=== PATIENT | female | born 1935 | race Asian ===

== ENCOUNTER 2017-01-17 08:52 | Emergency (ER) | payer OTHER ==
--- NOTE | 2017-01-17 09:20 | PDOC ---
History of Present Illness - History of Present Illness Initial Comments: 01/17/17 09:17 81 yo F unknown pmhx here wtih c/o fall this am. pt is poor historian and cant give details of her fall. pt was brought by ambulance, currently c/o right wrist pain. no neck or back pain. no n/v. no f/c. no family with patient. 01/17/17 09:51 pashto intrepeter [id number]. pt states fell this am while walking, has right wrist pain. no loc did not hit head. states her son was called and is coming to ED. no pmhx. no meds no allergies. <Paula Mcdaniel - Last Filed: 01/17/17 12:34> <Noemi Ureña - Last Filed: 01/17/17 12:43> - General Chief Complaint: Injury Stated Complaint: FALL Time Seen by Provider: 01/17/17 09:11 Past History <Paula Mcdaniel - Last Filed: 01/17/17 12:34> <Noemi Ureña - Last Filed: 01/17/17 12:43> - Past Medical History Allergies/Adverse Reactions: Allergies Allergy/AdvReac Type Severity Reaction Status Date / Time No Known Allergies Allergy Verified 01/17/17 09:25 Home Medications: Ambulatory Orders NK [No Known Home Medication] 01/17/17 Review of Systems - Review of Systems Constitutional: No: Chills, Diaphoresis HEENTM: No: Blurred Vision Respiratory: No: Cough, Orthopnea Cardiac (ROS): No: Chest Pain, Edema Musculoskeletal: Yes: Joint Pain Integumentary: No: Bruising, Change in Color All Other Systems: Reviewed and Negative <Paula Mcdaniel - Last Filed: 01/17/17 12:34> *Physical Exam - Physical Exam General Appearance: Yes: Nourished, Appropriately Dressed HEENT: positive: Normal Voice Neck: positive: Trachea midline Respiratory/Chest: positive: Lungs Clear, Normal Breath Sounds Cardiovascular: positive: Regular Rhythm, Regular Rate, S1, S2, Murmur. negative: Edema, JVD Gastrointestinal/Abdominal: positive: Normal Bowel Sounds. negative: Tender, Flat Musculoskeletal: positive: Other (right wrist deformity ttp,. decreased rom. elbow, shoulder FROM. ) Extremity: positive: Normal Capillary Refill, Normal Inspection Integumentary: positive: Normal Color, Dry, Warm Neurologic: positive: Other (alert and oriented x 2) <Paula Mcdaniel - Last Filed: 01/17/17 12:34> - Vital Signs Last Vital Signs Temp Pulse Resp BP Pulse Ox 97.2 F L 62 20 114/65 100 01/17/17 09:14 01/17/17 09:14 01/17/17 09:14 01/17/17 09:14 01/17/17 09:14 <Noemi Ureña - Last Filed: 01/17/17 12:43> Heart Score/ECG Review #1 General ECG Interpretation: Sinus Rhythm, Normal Rate (66), Normal Intervals, No acute ischemic changes Compared to previous ECG there are: Other (Qtc 492) <Paula Mcdaniel - Last Filed: 01/17/17 12:34> ED Treatment Course - RADIOLOGY Radiograph Interpretation: 01/17/17 10:55 XRay of Right Wrist As reviewed by Dr. Jose Wang IMPRESSION: Fractures of distal radius and ulna. Orthopedic follow-up needed. 01/17/17 12:42 XRay of Right Wrist As reviewed by Dr. Jose Wang IMPRESSION: Improvement in angulation following reduction of distal radius fracture. Casting for stabilization. - Medications Given in the ED: ED Medications Discontinued Medications Generic Name Dose Route Start Last Admin Trade Name Freq PRN Reason Stop Dose Admin Acetaminophen 650 mg 01/17/17 09:52 01/17/17 10:00 Tylenol - PO 01/17/17 09:53 650 mg ONCE ONE Administration <Noemi Ureña - Last Filed: 01/17/17 12:43> Medical Decision Making - Medical Decision Making 01/17/17 10:53 Ortho was called at 10:53. Dr Martinez is home economist, awaiting call back. 01/17/17 10:54 Dr. Martinez returned call at 10:[address] Mcdaniel about the patient's care. <Noemi Ureña - Last Filed: 01/17/17 12:43> *DC/Admit/Observation/Transfer - Discharge Dispostion Admit: No <Paula Mcdaniel - Last Filed: 01/17/17 12:34> <Noemi Ureña - Last Filed: 01/17/17 12:43> Diagnosis at time of Disposition: Distal radial fracture - Referrals Referrals: Chris Valdovinos [Primary Care Provider] - 1 week Jerzy Martinez MD [Staff Physician] - 7 days - Patient Instructions Additional Instructions: follow up with DR Martinez orthopedist. call to schedule for one week. wear splint. elevate to reduce swelling and pain. take ibuprofen 400 mg every 8 hrs as needed for pain. you can also take tylenol 500 mg every 6 hours as needed for pain. return for numbness tingling or any concerns.
[2017-01-17 09:31] VITALS: BP 114/65; PULSE 62; TEMP 97.2; BMI 22.6
[2017-01-17] MEDS ORDERED: ACETAMINOPHEN 325 MG TABLET (FP) PO ONE (09:52)
[2017-01-17] MEDS ORDERED: ACETAMINOPHEN 325 MG TABLET (FP) ONE (09:57)
[2017-01-17] MEDS ORDERED: LIDOCAINE HCL/PF 1% SDV 5ML VIAL ONE ×2 (11:49)
[2017-01-17] MEDS ORDERED: LIDOCAINE HCL 1%, 10 MG/ML (50 mL VIAL) SQ ONE (11:49)
--- NOTE | 2017-01-17 15:18 | CONS ---
DATE OF CONSULTATION: 01/17/2017 CHIEF COMPLAINT: Right wrist pain. HISTORY OF PRESENT ILLNESS: This is a pleasant 81-year-old female who slipped, landing on her outstretched right wrist. She complained of wrist pain afterwards. She denies any radiating pain, numbness or tingling. She denies any pain elsewhere. She denies any syncopal symptoms. The patient is seen with her son, who helps to aid in translation when the patient does not understand. PAST MEDICAL HISTORY: Denies. PAST SURGICAL HISTORY: Denies. MEDICATIONS: Denies. ALLERGIES: None. REVIEW OF SYSTEMS: Negative for fever, chills, any vision difficulty, dizziness , cough, chest pain, skin lesions, GI lesions. PHYSICAL EXAMINATION: General: This is an elderly female in no acute. She is alert and oriented x3. She is seen lying on a hospital stretcher. She has regular respirations. Vital signs: She is afebrile and vital signs are stable. Extremities: Examination of the right upper extremity demonstrates no skin lesions. There is a radial deformity at her wrist. There is mild swelling. Compartments are soft. Distally sensation is intact to light touch. Thumbs up, finger abduction and okay sign are intact. DIAGNOSTIC STUDIES: Radiographs are reviewed, demonstrating a comminuted, shortened, radially-deviated distal radius fracture. ASSESSMENT: Right distal radius fracture. PLAN: I reviewed today's findings with the patient as well as her family. She has a displaced distal radius fracture. I reviewed treatment options, including nonoperative versus operative management. The patient is electing for closed reduction and casting today. PROCEDURE: The patient prepped with alcohol. After obtaining verbal consent, reviewing the risk of infection, a 23-gauge needle was passed into the fracture hematoma and 8 mL of 1% lidocaine was injected. The limb was now hung in traction. Manual reduction was effected. A short-arm cast was placed. Postreduction radiographs were obtained, demonstrating satisfactory reduction of the fracture. The patient was instructed in cast care. We discussed elevating the wrist and the fingers. She is going to follow up within 1 week for a follow-up radiograph. I addressed all of the patient's and her family's questions. They voiced understanding and agreement with the plan. ALEKS DOUGLAS M.D. MICAH/[id number] MTDD
--- NOTE | 2017-01-19 10:08 | EKG ---
Test Reason : Blood Pressure : / mmHG Vent. Rate : 066 BPM Atrial Rate : 066 BPM P-R Int : 192 ms QRS Dur : 080 ms QT Int : 470 ms P-R-T Axes : 032 029 046 degrees QTc Int : 492 ms NORMAL SINUS RHYTHM PROLONGED QT ABNORMAL ECG NO PREVIOUS ECGS AVAILABLE Confirmed by DONALDO BROWN MD ([id number]) on 01/19/2017 10:07:56 AM Referred By: Confirmed By:DONALDO BROWN MD
== END 2017-01-17 13:37 | disposition home or self-care (01) ==
LOC: JER 08:52
PROC: 0PSHXZZ Reposition Right Radius, External Approach (ICD-10-PCS; principal; 2017-01-17)
DX: S52.591A Other fractures of lower end of right radius, initial encounter for closed fracture (principal); W01.0XXA Fall on same level from slipping, tripping and stumbling without subsequent striking against object, initial encounter; Y93.89 Activity, other specified; Y92.89 Other specified places as the place of occurrence of the external cause
CPT/HCPCS: 25605; 73110-TC-RT; 93005; 93010; 99282-25

== ENCOUNTER 2017-02-07 10:09 | Emergency (ER) | payer OTHER ==
[2017-02-07 10:17] VITALS: BP 109/73; PULSE 75; TEMP 98.7; BMI 21.4
--- NOTE | 2017-02-07 11:20 | PDOC ---
History of Present Illness - General Chief Complaint: Itching Stated Complaint: PAIN/ITCHING CAST Time Seen by Provider: 02/07/17 10:53 History Source: Patient, Family Exam Limitations: No Limitations - History of Present Illness Initial Comments: 02/07/17 11:21 Son brought mother in for evaluation of cast. Mother is mildly demented, states had an itch under her arm, and took a pair of scissors and started cutting the cast. Son brought for evaluation and hopeful cast redo. No fevers, no itching, no pain Timing/Duration: unsure Past History - Travel Traveled outside of the country in the last 30 days: No Close contact w/someone who was outside of country & ill: No - Past Medical History Allergies/Adverse Reactions: Allergies Allergy/AdvReac Type Severity Reaction Status Date / Time No Known Allergies Allergy Verified 02/07/17 10:12 Home Medications: Ambulatory Orders NK [No Known Home Medication] 01/17/17 Dementia: Yes - Psycho/Social/Smoking Cessation Hx Anxiety: No Suicidal Ideation: No Smoking History: Never smoked Have you smoked in the past 12 months: No Information on smoking cessation initiated: No Hx Alcohol Use: No Drug/Substance Use Hx: No Substance Use Type: None Review of Systems - Review of Systems Able to Perform ROS?: Yes Is the patient limited Ukrainian proficient: Yes Constitutional: Yes: See HPI. No: Symptoms Reported HEENTM: No: Symptoms Reported Respiratory: No: Symptoms reported Musculoskeletal: Yes: Symptoms Reported, See HPI. No: Joint Pain, Joint Swelling All Other Systems: Reviewed and Negative *Physical Exam - Vital Signs Last Vital Signs Temp Pulse Resp BP Pulse Ox 98.7 F 75 20 109/73 97 02/07/17 10:14 02/07/17 10:14 02/07/17 10:14 02/07/17 10:14 02/07/17 10:14 - Physical Exam General Appearance: Yes: Nourished, Appropriately Dressed, Apparent Distress HEENT: positive: CRISTIAN, Normal ENT Inspection, TMs Normal, Pharynx Normal Musculoskeletal: positive: Normal Inspection Extremity: positive: Other (normal range of motion of fingers, sensation intact , no evidence of infection or injury., ) Integumentary: positive: Normal Color, Dry, Warm Neurologic: 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 Martinez Thursday or Thursday for recasting and reevaluation Protect arm, do not put any instruments inside the cast for fear of cutting or infecting the skin underneath cast
== END 2017-02-07 11:27 | disposition home or self-care (01) ==
LOC: JERFT 10:09
DX: Z47.89 Encounter for other orthopedic aftercare (principal)
CPT/HCPCS: 99281-25